=== PATIENT | female | born 1955 | race Caucasian/White ===

== ENCOUNTER 2021-08-03 08:00 | Outpatient (CLI) | payer MEDICARE, OTHER | END 2021-08-03 08:01 | disposition home or self-care (01) | LOC: CSHCT 08:00 | PROVIDERS: ATTEND Internal Medicine Hematology & Oncology | DX: C64.2 Malignant neoplasm of left kidney, except renal pelvis (principal); D73.9 Disease of spleen, unspecified; N28.89 Other specified disorders of kidney and ureter; N83.02 Follicular cyst of left ovary; D25.9 Leiomyoma of uterus, unspecified; K76.89 Other specified diseases of liver | CPT/HCPCS: 74178; 82565 ==

== ENCOUNTER 2021-10-26 09:38 | Outpatient (CLI) | payer MEDICARE, OTHER ==
[2021-10-26 10:43] LABS: Estimated GFR-MDRD - POC Greater than 90
== END 2021-10-26 09:39 | disposition home or self-care (01) ==
LOC: CSHCT 09:38
PROVIDERS: ATTEND Urology
DX: C64.2 Malignant neoplasm of left kidney, except renal pelvis (principal)
CPT/HCPCS: 74170; 82565

== ENCOUNTER 2022-01-13 08:57 | Outpatient (CLI) | payer MEDICARE, OTHER | END 2022-01-13 08:58 | disposition home or self-care (01) | LOC: CSHULT 08:57 | PROVIDERS: ATTEND Family Medicine | DX: E04.1 Nontoxic single thyroid nodule (principal) | CPT/HCPCS: 76536 ==

== ENCOUNTER 2022-04-21 09:33 | Outpatient (CLI) | payer MEDICARE, OTHER | END 2022-04-21 09:34 | disposition home or self-care (01) | LOC: CSHMAMMO 09:33 | PROVIDERS: ATTEND Family Medicine | DX: Z12.31 Encounter for screening mammogram for malignant neoplasm of breast (principal); N64.89 Other specified disorders of breast | CPT/HCPCS: 77063; 77067 ==

== ENCOUNTER 2022-04-27 13:49 | Outpatient (CLI) | payer MEDICARE, OTHER | END 2022-04-27 13:50 | disposition home or self-care (01) | LOC: CSHMAMMO 13:49 | PROVIDERS: ATTEND Family Medicine | DX: N64.89 Other specified disorders of breast (principal) | CPT/HCPCS: 77065; G0279 ==

== ENCOUNTER 2022-07-29 10:39 | Outpatient (CLI) | payer MEDICARE, OTHER | END 2022-07-29 10:40 | disposition home or self-care (01) | LOC: CSHCT 10:39 | PROVIDERS: ATTEND Internal Medicine Hematology & Oncology | DX: C64.2 Malignant neoplasm of left kidney, except renal pelvis (principal) | CPT/HCPCS: 71260; 74177 ==

== ENCOUNTER 2023-05-09 14:00 | Outpatient (CLI) | payer MEDICARE, OTHER | END 2023-05-09 14:01 | disposition home or self-care (01) | LOC: CSHMAMMO 14:00 | PROVIDERS: ATTEND Obstetrics & Gynecology | DX: Z12.31 Encounter for screening mammogram for malignant neoplasm of breast (principal) | CPT/HCPCS: 77063; 77067 ==

== ENCOUNTER 2024-01-17 14:42 | Outpatient (CLI) | payer MEDICARE, OTHER | END 2024-01-17 14:43 | disposition home or self-care (01) | LOC: CSHULT 14:42 | PROVIDERS: ATTEND Otolaryngology Plastic Surgery within the Head & Neck | DX: E07.9 Disorder of thyroid, unspecified (principal); E04.2 Nontoxic multinodular goiter | CPT/HCPCS: 76536 ==

== ENCOUNTER 2024-05-10 12:57 | Outpatient (CLI) | payer MEDICARE, OTHER | END 2024-05-10 12:58 | disposition home or self-care (01) | LOC: CSHMAMMO 12:57 | PROVIDERS: ATTEND Obstetrics & Gynecology | DX: Z12.31 Encounter for screening mammogram for malignant neoplasm of breast (principal) | CPT/HCPCS: 77063; 77067 ==

== ENCOUNTER 2024-07-25 07:54 | Outpatient (CLI) | payer MEDICARE, OTHER ==
[2024-07-25] MEDS ORDERED: Iopamidol 300 61% 100 ML VIAL FS ONE (09:34)
== END 2024-07-25 07:55 | disposition home or self-care (01) ==
LOC: CSHCT 07:54
PROVIDERS: ATTEND Urology
DX: C64.2 Malignant neoplasm of left kidney, except renal pelvis (principal); C43.9 Malignant melanoma of skin, unspecified; E66.9 Obesity, unspecified; Z90.5 Acquired absence of kidney; Z15.09 Genetic susceptibility to other malignant neoplasm; R35.0 Frequency of micturition
CPT/HCPCS: 71046; 74178; 80048; 81001; 82565; 87086; Q9967; 36415